=== PATIENT | male | born 1940 | race Caucasian/White ===

== ENCOUNTER → 2017-02-07 | Outpatient (CLI) | payer MEDICARE, BC ==
[~2017-02-07] MED LIST: CLAR10CA3 PO; CYCL1PAK PO; DOXA1 PO; DOXA1TAB34 PO; HYDR-3533 PO; IBUP100S30 PO; LORA10TA PO; MEDR4PAK3 PO; VITA250T5 PO
[2017-02-07 15:34] LABS: AUTOMATED NEUTROPHIL # 5.4 TH/MM3 (1.8-7.7); BASOPHIL % 0.5 % (0.0-2.0); EOSINOPHIL # 0.2 TH/MM3 (0-0.4); EOSINOPHIL % 2.2 % (0.0-4.0); HEMO FLAGS DIFF FINAL; LYMPH % 21.9 % (9.0-44.0); LYMPHOCYTE # 1.8 TH/MM3 (1.0-4.8); MEAN CELL VOLUME 91.7 FL (80.0-100.0); MEAN CORPUSCULAR HGB CONC 33.9 % (32.0-36.0); MONO % 9.9 % (0.0-8.0); NEUT % 65.5 % (16.0-70.0); PLATELET COUNT 297 TH/MM3 (150-450); RED BLOOD COUNT 4.58 MIL/MM3 (4.50-5.90); WHITE BLOOD COUNT 8.2 TH/MM3 (4.0-11.0)
== END ==
LOC: PHPRE 14:01
PROVIDERS: ATTEND Ophthalmology
DX: Z01.812 Encounter for preprocedural laboratory examination (principal); H25.9 Unspecified age-related cataract
CPT/HCPCS: 36415; 85025

== ENCOUNTER → 2017-02-21 | Day surgery (SDC) | payer MEDICARE, BC ==
--- NOTE | 2017-02-11 09:20 | MH ---
cc: SUN KANG DATE OF ADMISSION: 02/21/2017 ADMISSION DIAGNOSIS Cataract, left eye. HISTORY OF PRESENT ILLNESS This 76-year-old white male is coming through [facility] for the purpose of a lens extraction of the left eye with intraocular lens implant under local anesthesia. He has noted decreasing visual acuity interfering with his daily activities and elected the above procedure. His best corrected visual acuity in room light is 20/30 in the right eye and 20/40 +1 in the left. PAST MEDICAL HISTORY The patient has a history of hypertension and prostate cancer. PAST SURGICAL HISTORY Prostate cancer surgery. MEDICATIONS Daily medications include: 1. Doxazosin. 2. Vitamin D. 3. History of Flomax years ago for about a week. ALLERGIES The patient is allergic to CLARITIN. Also has a history of NEOSPORIN ALLERGY. SOCIAL HISTORY The patient does not smoke or drink alcohol. FAMILY HISTORY Noncontributory. REVIEW OF SYSTEMS HEAD: Patient denies severe headaches, dizziness or recent head injury. EARS: Patient denies hearing loss, ear pain, discharge or ringing in the ears. NOSE: Patient denies nasal discharge, obstruction or frequent colds. MOUTH AND THROAT: Patient denies soreness of the mouth or tongue, bleeding gums, trouble swallowing, changes in voice or sore throat. NECK: Patient denies neck pain or swelling, limitation of neck movement or neck injury. CARDIOPULMONARY SYSTEM: Patient denies shortness of breath, orthopnea, chronic cough, sputum production, hemoptysis, chest pain, wheezing, palpitations or light-headedness. GI SYSTEM: Patient denies poor appetite, nausea, vomiting, abdominal pain, ulcers, hemorrhoids or change in bowel habits. SYSTEM: The patient has a history of urinary frequency day and night. No dysuria, change in urine color. History of prostate cancer. NERVOUS SYSTEM: Patient denies convulsions, vertigo, stroke, numbness or weakness. PHYSICAL EXAMINATION VITAL SIGNS: Blood pressure is 110/68, pulse 86, respirations 16. HEAD: Normocephalic, atraumatic. NOSE: Without rhinorrhea. THROAT: Throat clear. NECK: Supple. CHEST: Clear. HEART: Regular rhythm. ABDOMEN: Without tenderness. EXTREMITIES: Without edema. NEUROLOGIC: Within normal limits. MENTAL STATUS: Mental status within normal limits. EYE EXAMINATION: The patient's best corrected visual acuity in room light is 20/30 in the right eye and 20/40 +1 in the left. Visual bellamy are full to confrontation testing. Extraocular muscle exam reveals full versions with orthophoria at distance and near. Pupils are 2.5 mm equal, round, reactive to light without afferent defect. Anterior segment examination reveals dermatochalasis of the eyelid skin. There is a Salzmann's nodule present nasally. There are nuclear sclerotic and posterior cortical cataract changes bilaterally. Intraocular pressures is 20 in each eye by applanation tonometry. Dilated fundus exam revealed sharp disk with cup-to-disk ratio 0.2 bilaterally. The macula is clear and the background is within normal limits. IMPRESSION 1. Bilateral cataracts. 2. Dermatochalasis. 3. 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 PLAN Lens extraction of the left eye with intraocular lens implant under local anesthesia. Iris retractors may be used in this case as the patient has been on Flomax in the past. The patient has been cleared medically. He has been counseled as to the risks, benefits and alternatives and elected to proceed. I feel that cataract surgery will improve the quality of life and activities of daily living in this patient. MD PJ Lara/JOSE /3:19 PM /9:20 AM
[~2017-02-21] VITALS: Ht 170.2 cm; Wt 63.0 kg
[~2017-02-21] MED LIST changes: +ACETYLCHOLINE CHL OPHT SOLN 1:100 2 ML VIAL ONE; +CHLORHEXIDINE GLUCONATE 2 % 1 PACK (2 CLOTHS) TOPICAL PRN; -CYCL1PAK PO; +CYCLOPENTOLATE HCL 1% OPHT SOLN 2 ML BTL ONE; +DICLOFENAC SOD 0.1% OPHT SOLN 2.5 ML BTL ONE; -DOXA1 PO; +EPINEPHrine HCL (1:1000) 1 MG/ML VIAL ONE; +EPINEPHrine HCL PF/SF (1:1000) 1 MG/ML AMP I-OCULAR ONE; +GATIFLOXACIN 0.5% OPHT SOLN 2.5 ML BTL ONE; +HYALURONIDASE/LIDOCAINE/BUPIVACAINE 4.5 ML SYR LEFT EYE ONE; +HYALURONIDASE/LIDOCAINE/BUPIVACAINE 4.5 ML SYR ONE; +HYALURONIDASE/LIDOCAINE/BUPIVACAINE 6 ML SYR LEFT EYE ONE; +HYALURONIDASE/LIDOCAINE/BUPIVACAINE 6 ML SYR ONE; -HYDR-3533 PO; -IBUP100S30 PO; +INSULIN HUMAN REGULAR 1,000 UNITS/10 ML VIAL SQ PRN; +LACTATED RINGER'S 1000 ML IV PRN; -LORA10TA PO; -MEDR4PAK3 PO; +METOPROLOL TARTRATE 25 MG TAB PO PRN; +PHENYLEPHRINE HCL 2.5% OPTH SOLN 2 ML BTL ONE; +PILOCARPINE HCL 2% OPHT SOLN 15 ML BTL ONE; +POVIDONE IODINE 5% (ANTISEPSIS KIT) 4 APPLICATIONS EACH NARE PRN; +PROPARACAINE HCL 0.5% OPHT SOLN 15 ML BTL LEFT EYE ONE; +PROPARACAINE HCL 0.5% OPHT SOLN 15 ML BTL ONE; +PROPOFOL 200 MG/20 ML AMP ONE; +SODIUM CHLORID 0.9% 500 ML IV PRN; +TOBRAMYCIN/DEXAMETHASONE OPTH OINT 3.5 GM TUBE ONE; +TROPICAMIDE 1% OPHT SOLN 15 ML BTL ONE; +VISCOAT OPHT IRRIG SOLN 0.75 ML SYRINGE LEFT EYE ONE
[2017-02-21 07:25] VITALS: BP 150/86; PULSE 65; RESP 18; TEMP 97.9; O2SAT 98
[2017-02-21 07:30] VITALS: PULSE 65
[2017-02-21] MEDS: CYCLOPENTOLATE HCL 1% OPHT SOLN 2 ML BTL LEFT EYE SCH ×4 (07:35→07:44)
[2017-02-21] MEDS: GATIFLOXACIN 0.5% OPHT SOLN 2.5 ML BTL LEFT EYE SCH ×4 (07:35→07:44)
[2017-02-21] MEDS: DICLOFENAC SOD 0.1% OPHT SOLN 2.5 ML BTL LEFT EYE SCH ×4 (07:35→07:44)
[2017-02-21] MEDS: TROPICAMIDE 1% OPHT SOLN 15 ML BTL LEFT EYE SCH ×4 (07:35→07:44)
[2017-02-21] MEDS: PHENYLEPHRINE HCL 2.5% OPTH SOLN 2 ML BTL LEFT EYE SCH ×4 (07:35→07:44)
[2017-02-21 07:53] VITALS: PULSE 59
[2017-02-21 09:47] VITALS: TEMP 97.2
[2017-02-21 10:05] VITALS: BP 134/66; PULSE 62; RESP 16; O2SAT 97
--- NOTE | 2017-02-22 07:12 | MP ---
cc: SUN YEAGER DATE OF SURGERY 02/21/2017 PREOPERATIVE DIAGNOSIS Cataract left eye. POSTOPERATIVE DIAGNOSIS Cataract left eye. OPERATION Extracapsular cataract extraction with posterior chamber intraocular lens implant by phacoemulsification, left eye. SURGEON Sun Yeager M.D. ANESTHESIA Local COMPLICATIONS None INDICATIONS See history and physical previously dictated. OPERATIVE PROCEDURE The patient had adequate retrobulbar and eyelid blocks administered in the holding area and was brought to the operating room. The left eye was prepped and draped in the usual sterile ophthalmic manner. A lid speculum was inserted in the left eye. A 4-0 silk bridle suture was placed through the conjunctiva near the superior rectus muscle and it was tagged to the drape. A fornix-based conjunctival flap was prepared spanning approximately 5 mm in width. Hemostasis was obtained with wet-field cautery. A 3.5 mm groove was made 1 mm from the limbus and dissected up to the limbus in the form of a scleral pocket incision. A stab incision was then made at the 2 o'clock position. Non-preserved epinephrine diluted 1:3 with balanced salt solution was injected into the anterior chamber. Viscoelastic was injected into the anterior chamber. The anterior chamber was entered with a 2.75 mm keratome through the scleral pocket incision. A 360 degree continuous curvilinear capsulorrhexis was then performed. Hydrodissection was utilized to divide the nucleus into inner and outer components and to separate the cortex from the capsule. Phacoemulsification was then utilized to remove the nucleus. The outer nuclear layer was removed with irrigation and aspiration and short bursts of ultrasound as necessary. The cortex was removed with the irrigation-aspiration hand piece. The posterior capsule was polished with the capsule polisher. Viscoelastic was injected into the capsular bag. The intraocular lens was inspected and found to be in good condition. The lens utilized was a Shaw, model number SA60AT with a power of +19 diopters. The lens was inserted into the capsular bag. The viscoelastic in the anterior chamber was then removed with the irrigation-aspiration hand piece. Viscoelastic was also removed from beneath the intraocular lens. The anterior chamber was filled with Miochol-E through the stab incision and pressurized. The wound was closed with one interrupted 10-0 nylon suture. The wound was checked for leaks and there were none. The 4-0 bridle suture was removed. The conjunctival flap was brought down over the wound and secured with cautery. Pilocarpine 2% eye drops were instilled topically. The lid speculum was removed. TobraDex ophthalmic ointment was applied. The eye was double patched and shielded. The patient tolerated the procedure well and left the Operating Room in satisfactory condition. MD PJ Lara/JOIE /9:50 AM /7:12 AM ACE
== END | disposition home or self-care (01) ==
LOC: PHSDC 06:50
PROVIDERS: ATTEND Ophthalmology
DX: H25.812 Combined forms of age-related cataract, left eye (principal); H18.452 Nodular corneal degeneration, left eye; H02.839 Dermatochalasis of unspecified eye, unspecified eyelid; I10 Essential (primary) hypertension; Z85.46 Personal history of malignant neoplasm of prostate
CPT/HCPCS: 00142; 66984; J0171; J7040; V2632

== ENCOUNTER → 2017-06-20 | Outpatient (CLI) | payer MEDICARE, BC ==
[~2017-06-20] MED LIST changes: -ACETYLCHOLINE CHL OPHT SOLN 1:100 2 ML VIAL ONE; -CHLORHEXIDINE GLUCONATE 2 % 1 PACK (2 CLOTHS) TOPICAL PRN; -CYCLOPENTOLATE HCL 1% OPHT SOLN 2 ML BTL ONE; -DICLOFENAC SOD 0.1% OPHT SOLN 2.5 ML BTL ONE; -EPINEPHrine HCL (1:1000) 1 MG/ML VIAL ONE; -EPINEPHrine HCL PF/SF (1:1000) 1 MG/ML AMP I-OCULAR ONE; -GATIFLOXACIN 0.5% OPHT SOLN 2.5 ML BTL ONE; -HYALURONIDASE/LIDOCAINE/BUPIVACAINE 4.5 ML SYR LEFT EYE ONE; -HYALURONIDASE/LIDOCAINE/BUPIVACAINE 4.5 ML SYR ONE; -HYALURONIDASE/LIDOCAINE/BUPIVACAINE 6 ML SYR LEFT EYE ONE; -HYALURONIDASE/LIDOCAINE/BUPIVACAINE 6 ML SYR ONE; -INSULIN HUMAN REGULAR 1,000 UNITS/10 ML VIAL SQ PRN; -LACTATED RINGER'S 1000 ML IV PRN; -METOPROLOL TARTRATE 25 MG TAB PO PRN; -PHENYLEPHRINE HCL 2.5% OPTH SOLN 2 ML BTL ONE; -PILOCARPINE HCL 2% OPHT SOLN 15 ML BTL ONE; -POVIDONE IODINE 5% (ANTISEPSIS KIT) 4 APPLICATIONS EACH NARE PRN; -PROPARACAINE HCL 0.5% OPHT SOLN 15 ML BTL LEFT EYE ONE; -PROPARACAINE HCL 0.5% OPHT SOLN 15 ML BTL ONE; -PROPOFOL 200 MG/20 ML AMP ONE; -SODIUM CHLORID 0.9% 500 ML IV PRN; -TOBRAMYCIN/DEXAMETHASONE OPTH OINT 3.5 GM TUBE ONE; -TROPICAMIDE 1% OPHT SOLN 15 ML BTL ONE; -VISCOAT OPHT IRRIG SOLN 0.75 ML SYRINGE LEFT EYE ONE
[2017-06-20 10:58] LABS: AUTOMATED NEUTROPHIL # 3.1 TH/MM3 (1.8-7.7); BASOPHIL % 0.8 % (0.0-2.0); EOSINOPHIL # 0.2 TH/MM3 (0-0.4); EOSINOPHIL % 4.1 % (0.0-4.0); HEMATOCRIT 44.6 % (39.0-51.0); HEMO FLAGS DIFF FINAL; LYMPH % 29.6 % (9.0-44.0); LYMPHOCYTE # 1.7 TH/MM3 (1.0-4.8); MEAN CELL VOLUME 91.5 FL (80.0-100.0); MEAN CORPUSCULAR HEMOGLOBIN 30.2 PG (27.0-34.0); MONO % 10.6 % (0.0-8.0); NEUT % 54.9 % (16.0-70.0); PLATELET COUNT 346 TH/MM3 (150-450); RED BLOOD COUNT 4.88 MIL/MM3 (4.50-5.90); RED CELL DISTRIBUTION WIDTH 13.4 % (11.6-17.2); WHITE BLOOD COUNT 5.6 TH/MM3 (4.0-11.0)
== END ==
LOC: PHPRE 09:28
PROVIDERS: ATTEND Ophthalmology
DX: Z01.812 Encounter for preprocedural laboratory examination (principal); H26.9 Unspecified cataract
CPT/HCPCS: 36415; 85025

== ENCOUNTER → 2017-07-04 | Day surgery (SDC) | payer MEDICARE, BC ==
--- NOTE | 2017-06-23 13:13 | MH ---
cc: SUN KANG DATE OF ADMISSION: 07/04/2017 ADMITTING DIAGNOSIS: Cataract right eye. HISTORY OF PRESENT ILLNESS This 77-year-old white male is coming through [facility] for the purpose of a lens extraction of the right eye with intraocular lens implant under local anesthesia. He has noticed decreasing visual acuity interfering with his daily activities and has elected to have the above procedure. He had a similar procedure in the left eye in February of this year and has done well postoperatively and now is requesting cataract surgery for his right eye. His best corrected visual acuity in room light is 20/30 +1 in the right eye and 20/20 in the left. PAST MEDICAL HISTORY 1. The patient has a history of hypertension. 2. Prostate cancer. 3. A back injury involving his disc. PAST SURGICAL HISTORY 1. Surgery for prostate cancer. 2. Left cataract surgery in February of this year. DAILY MEDICATIONS 1. Doxazosin. 2. B vitamins. 3. He has a history of Flomax use for about a week a year ago. ALLERGIES HE IS ALLERGIC TO CLARITIN. SOCIAL HISTORY Does not smoke or drink. FAMILY HISTORY Noncontributory. REVIEW OF SYSTEMS HEAD: Patient denies severe headaches, dizziness or recent head injury. EARS: Patient denies hearing loss, ear pain, discharge or ringing in the ears. NOSE: Patient denies nasal discharge, obstruction or frequent colds. MOUTH AND THROAT: Patient denies soreness of the mouth or tongue, bleeding gums, trouble swallowing, changes in voice or sore throat. NECK: Patient denies neck pain or swelling, limitation of neck movement or neck injury. CARDIOPULMONARY SYSTEM: Patient denies shortness of breath, orthopnea, chronic cough, sputum production, hemoptysis, chest pain, wheezing, palpitations or light-headedness. GI SYSTEM: Patient denies poor appetite, nausea, vomiting, abdominal pain, ulcers, hemorrhoids or change in bowel habits. SYSTEM: The patient admits to urinary frequency and getting up three times per night to urinate. He denies dysuria, change in urine color. NERVOUS SYSTEM: Patient denies convulsions, vertigo, stroke, numbness or weakness. PHYSICAL EXAMINATION VITAL SIGNS: Blood pressure is 126/74, pulse 76, respirations 16. HEAD: Normocephalic, atraumatic. NOSE: Without rhinorrhea. Throat clear. NECK: Supple. CHEST: Clear. HEART: Regular rhythm. ABDOMEN: Without tenderness. EXTREMITIES: Without edema. NEUROLOGIC: Within normal limits. MENTAL STATUS: Within normal limits. EYE EXAMINATION The patient's best corrected visual acuity is 20/30 +1 in the right eye in room light and 20/20 in the left eye. Visual bellamy are full to confrontation testing. Extraocular muscle exam reveals full versions with orthophoria at distance and near. Pupils are 3 mm equal, round, reactive to light without afferent defect. Anterior segment examination of the right eye shows a small pupillary membrane still present from the 3 to 8 o'clock position. A nuclear sclerotic and cortical cataract is present in the right eye. A posterior chamber intraocular lens is present in the left. Intraocular pressure is 18 in the right eye and 14 on the left by applanation tonometry. Salzmann nodule is noted on the left cornea. Dilated fundus exam reveals sharp disks with cup-to-disk ratio of 0.2 bilaterally. The macula is clear and the background is within normal limits. IMPRESSION 1. Cataract right eye. 2. Pseudophakia left eye. 3. Salzmann nodule left cornea. 4. Dry eyes both eyes. PLAN Lens extraction of the right eye with intraocular lens implant under local anesthesia through [facility]. The patient has been cleared medically. He has been counseled as to the risks, benefits and alternatives and elected to proceed. I feel that cataract surgery will improve the quality of life and activities of daily living in this patient. MD PJ Lara/RUFINA /12:42 PM /12:54 PM
[~2017-07-04] VITALS: Ht 170.2 cm; Wt 65.5 kg
[~2017-07-04] MED LIST changes: +ACETYLCHOLINE CHL OPHT SOLN 1:100 2 ML VIAL ONE; +CHLORHEXIDINE GLUCONATE 2 % 1 PACK (2 CLOTHS) TOPICAL PRN; +EPINEPHrine HCL (1:1000) 1 MG/ML VIAL ONE; +HYALURONIDASE/LIDOCAINE/BUPIVACAINE 5 ML SYR RIGHT EYE ONE; +INSULIN HUMAN REGULAR 1,000 UNITS/10 ML VIAL SQ PRN; +LACTATED RINGER'S 1000 ML IV PRN; +METOPROLOL TARTRATE 25 MG TAB PO PRN; +PILOCARPINE HCL 2% OPHT SOLN 15 ML BTL ONE; +POVIDONE IODINE 5% (ANTISEPSIS KIT) 4 APPLICATIONS EACH NARE PRN; +PROPARACAINE HCL 0.5% OPHT SOLN 15 ML BTL RIGHT EYE ONE; +PROPOFOL 200 MG/20 ML AMP ONE; +SODIUM CHLORID 0.9% 500 ML IV PRN; +TOBRAMYCIN/DEXAMETHASONE OPTH OINT 3.5 GM TUBE ONE; +VISCOAT OPHT IRRIG SOLN 0.75 ML SYRINGE ONE; +acetaZOLAMIDE SEQUELS 500 MG SUSTAINED RELEASE CAP ONE
[2017-07-04 08:43] VITALS: PULSE 55
[2017-07-04] MEDS: DICLOFENAC SOD 0.1% OPHT SOLN 2.5 ML BTL RIGHT EYE SCH ×4 (08:43→08:52)
[2017-07-04] MEDS: TROPICAMIDE 1% OPHT SOLN 15 ML BTL RIGHT EYE SCH ×4 (08:43→08:52)
[2017-07-04] MEDS: GATIFLOXACIN 0.5% OPHT SOLN 2.5 ML BTL RIGHT EYE SCH ×4 (08:43→08:52)
[2017-07-04] MEDS: PHENYLEPHRINE HCL 2.5% OPTH SOLN 2 ML BTL RIGHT EYE SCH ×4 (08:43→08:52)
[2017-07-04] MEDS: CYCLOPENTOLATE HCL 1% OPHT SOLN 2 ML BTL RIGHT EYE SCH ×4 (08:43→08:52)
[2017-07-04 09:31] VITALS: PULSE 68
[2017-07-04 11:35] VITALS: TEMP 97.8
--- NOTE | 2017-07-04 11:47 | MP ---
cc: SUN YEAGER DATE OF SURGERY: July 04, 2017 PREOPERATIVE DIAGNOSIS: Cataract right eye. POSTOPERATIVE DIAGNOSIS: Cataract right eye. OPERATION: Extracapsular cataract extraction with posterior chamber intraocular lens implant by phacoemulsification, right eye. SURGEON: Sun Yeager M.D. ANESTHESIA: Local. COMPLICATIONS: None. INDICATIONS: See history and physical previously dictated. OPERATIVE PROCEDURE: The patient had adequate retrobulbar and eyelid blocks administered in the holding area and was brought to the operating room. The right eye was prepped and draped in the usual sterile ophthalmic manner. A lid speculum was inserted in the right eye. A 4-0 silk bridle suture was placed through the conjunctiva near the superior rectus muscle and it was tagged to the drape. A fornix-based conjunctival flap was prepared spanning approximately 5 mm in width. Hemostasis was obtained with wet-field cautery. A 3.5 mm groove was made 1 mm from the limbus and dissected up to the limbus in the form of a scleral pocket incision. A stab incision was then made at the 2 o'clock position. Viscoelastic was injected into the anterior chamber. The anterior chamber was entered with a 2.75 mm keratome through the scleral pocket incision. A 360 degree continuous curvilinear capsulorrhexis was then performed. Hydrodissection was utilized to divide the nucleus into inner and outer components and to separate the cortex from the capsule. Phacoemulsification was then utilized to remove the nucleus. The outer nuclear layer was removed with irrigation and aspiration and short bursts of ultrasound as necessary. The cortex was removed with the irrigation/aspiration handpiece. The posterior capsule was polished with the capsule polisher. Viscoelastic was injected into the capsular bag. The intraocular lens was inspected and found to be in good condition. The lens utilized was an Shaw, model number SA60AT with a power of +18.5 diopters. The lens was inserted into the capsular bag. The viscoelastic in the anterior chamber was then removed with the irrigation-aspiration handpiece. Viscoelastic was also removed from beneath the intraocular lens. The anterior chamber was filled with Miochol-E through the stab incision and pressurized. The wound was checked for leaks at this pressure and normalized pressure and there were none. The 4-0 bridle suture was removed. The conjunctival flap was brought down over the wound and secured with cautery. Pilocarpine 2% eye drops were instilled topically. The lid speculum was removed. TobraDex ophthalmic ointment was applied. The eye was double patched and shielded. The patient tolerated the procedure well and left the Operating Room in satisfactory condition. MD PJ Lara/RUFINA /11:38 AM /11:40 AM
[2017-07-04 12:00] VITALS: BP 141/73; PULSE 59; RESP 14; O2SAT 96
== END | disposition home or self-care (01) ==
LOC: PHSDC 07:45
PROVIDERS: ATTEND Ophthalmology
DX: H25.811 Combined forms of age-related cataract, right eye (principal); I10 Essential (primary) hypertension; H04.123 Dry eye syndrome of bilateral lacrimal glands; H18.452 Nodular corneal degeneration, left eye; Z96.1 Presence of intraocular lens; Z85.46 Personal history of malignant neoplasm of prostate
CPT/HCPCS: 00142; 66984; J0171; J7040; V2632